=== PATIENT | male | born 1950 | race Caucasian/White ===

== ENCOUNTER → 2017-11-09 07:18 | Outpatient (CLI) | payer MEDICARE ==
[2015-06-10 10:28] VITALS: BMI 27.8
[~2017-11-09 07:18] MED LIST: BACTRIM DS TABL1 TAB PO; BAYER CHEWABLE81 MG PO; CENTRUM COMPLE1 EACH PO; COLACE100 MG PO; ELIQUIS2.5 MG PO; HYDROCODONE-APA1 TAB PO; K-DUR20 MEQ PO; LASIX40 MG PO; LIPITOR20 MG PO; LOPRESSOR25 MG PO; LUMIGAN 0.01%2.5 ML EACH EYE; NORCO 7.5/325 T1 TA1 PO; PERCOCET 10/3251 TA1 PO; PLAVIX75 MG PO; SANTYL30 GM TP; SENOKOT-S TABLE1 TAB PO; TESSALON PERLE100 MG PO
== END | disposition home or self-care (01) ==
LOC: D.CT 07:18
DX: Z86.718 Personal history of other venous thrombosis and embolism (principal)

== ENCOUNTER 2018-02-02 06:38 | Outpatient (CLI) | payer MEDICARE ==
[~2018-02-02] VITALS: Ht 172.7 cm; Wt 79.1 kg
--- NOTE | ~2018-02-02 | HEMODYNAMI ---
PATIENT:LIZA WHITFIELD MEDICAL RECORD: [id number] : 46 LOCATION:[facility] ADMISSION DATE: 02/02/18 Generatedon:02/02/201810:54 Patient name: LIZA WHITFIELD Patient #: [id number] SSN: : Date of study: 02/02/2018 Page: Of Hemodynamic Procedure Report Patient Data Patient Demographics Procedure consent was obtained First Name: LIZA Gender: Male Last Name: ROSEANN : 1950 Middle Initial: CHANDLER Age: 67 year(s) Patient #: [id number] Race: Unknown Additional ID: [id number] Contact details Address: [facility] [address] State: [place] City: [place] Zip code: [address] Past Medical History Allergies: No known allergies Admission Admission Data Admission Date: 02/02/2018 Admission Time: 6:38 Procedure Procedure Types Cath Procedure Peripheral Cath Diagnostic Procedure Abd/Extremity Extremities Procedure Description Procedure Date Procedure Date: 02/02/2018 Procedure Start Time: 9:30 Procedure Staff Name Function Kirill Garland MD Performing Physician Neo Astudillo RT Monitor Holly Pineda RN Nurse Procedure Data Cath Procedure Fluoroscopy Diagnostic fluoroscopy Total fluoroscopy dose: 384 dose: 384 mGy mGy Contrast Material Contrast Material Type Amount (ml) Isovue 300 105 Entry Location Entry Primary Successful Side Size Upsize 1 Upsize Entry Closure Successful Closure Location (Fr) (Fr) 2 (Fr) Remarks Device Remarks Femoral Left 5 Fr 7 Fr Angio-VIP artery Mid-Length 6Fr Diagnostic catheters Device Type Used For End Catheter Placement Merit ULTRA BOLUS FLUSH 5Fr 65CM catheter ([id number]) Procedure Medications Medication Administration Route Dosage Heparin Flush Bag added to field 3 bags (1000units/500ml NS) Lidocaine 1% added to field 20 Versed I.V. 1 mg Fentanyl I.V. 50 mcg Versed I.V. 1 mg Fentanyl I.V. 50 mcg Heparin Bolus 3000 Hemodynamics Rest Heart Rate: 55 (bpm) Snapshots Pre Cath Intra NCS Post Cath Vital Signs Time Heart Resp SPO2 etCO2 NIBP (mmHg) Rhythm Pain Sedation Rate (ipm) (%) (mmHg) Status Level (bpm) 9:21:46 53 11 95 0 110/65(92) NSR 0 (11) 10(A) , No pain 9:25:58 54 9 96 0 105/62(92) NSR 0 (11) 10(A) , No pain 9:30:57 60 11 98 35.1 Measuring NSR 0 (11) 10(A) , No pain 9:31:01 60 11 98 33.6 116/69(98) NSR 1 (11) 9(A) , Very mild 9:35:08 53 18 98 33.6 107/64(87) NSR 0 (11) 8(A) , No pain 9:39:18 54 13 98 34.3 104/62(71) NSR 0 (11) 8(A) , No pain 9:43:22 56 97 37.4 100/64(88) NSR 0 (11) 8(A) , No pain 9:48:21 53 13 97 36.6 Measuring NSR 0 (11) 8(A) , No pain 9:48:31 53 13 97 35.9 109/66(90) NSR 0 (11) 8(A) , No pain 9:52:41 51 13 97 33.6 121/67(100) NSR 0 (11) 8(A) , No pain 9:56:55 51 21 97 29.8 110/66(100) NSR 0 (11) 8(A) , No pain 10:00:59 52 12 97 34.3 111/67(92) NSR 0 (11) 8(A) , No pain 10:05:09 52 15 97 32.1 106/64(93) NSR 0 (11) 8(A) , No pain 10:09:19 50 13 98 31.3 106/63(86) NSR 0 (11) 8(A) , No pain 10:13:23 51 13 98 29.8 101/65(89) NSR 0 (11) 8(A) , No pain 10:18:22 51 13 97 32.8 Measuring NSR 0 (11) 8(A) , No pain 10:18:26 51 13 97 32.9 116/66(89) NSR 0 (11) 8(A) , No pain 10:22:38 50 14 98 34.4 116/67(95) NSR 0 (11) 8(A) , No pain 10:26:50 52 25 97 38.1 110/65(93) NSR 0 (11) 8(A) , No pain 10:30:59 51 18 97 29.8 111/70(100) NSR 0 (11) 8(A) , No pain 10:35:03 50 17 98 32.2 108/74(102) NSR 0 (11) 8(A) , No pain 10:39:09 52 14 98 32.1 114/77(102) NSR 0 (11) 8(A) , No pain 10:43:19 94 0 125/74(113) NSR 0 (11) 8(A) , No pain 10:47:19 0 No Cuff NSR 0 (11) 8(A) , No pain Medications Time Medication Route Dose Verified Delivered Reason Notes Effe ctiveness by by 9:10:56 Heparin Flush added 3 Kirill Roy used for Bag to bags Garland Garland procedure (1000units/500ml field MD THOMPSON NS) 9:11:08 Lidocaine 1% added 20ml Kirill Roy for local to vial Garland Garland anesthetic field MD THOMPSON 9:31:11 Versed I.V. 1 mg Kirill Eddy for Garland Edwin RN sedation 9:31:21 Fentanyl I.V. 50 Kirill Eddy for mcg Garland Edwin RN sedation 9:56:16 Versed I.V. 1 mg Kirill Eddy for Garland Edwin RN sedation 9:56:22 Fentanyl I.V. 50 Kirill Eddy for mcg Garland Edwin RN sedation 10:18:10 Heparin Bolus IA 3000 Kirill Roy UNITS Dada Garland MD, MD Procedure Log Time Note 9:00:21 Neo Astudillo RT (R) (CV) sent for patient. Start room use. 9:00:35 Time tracking: Regular hours (M-F 7:00 - 5:00) 9:00:40 Plan of Care:Hemodynamics will remain stable., Cardiac rhythm will remain stable., Comfort level will be maintained., Respiratory function will remain adequate., Patient/ family verbilizes understanding of procedure., Procedure tolerated without complication., Recovers from procedure without complications.. 9:00:46 Patient received from Outpatients to IR Alert and oriented. Tansferred to table in Supine position. 9:00:47 Correct patient and procedure confirmed by team. 9:00:49 Signed procedure consent form obtained from patient. 9:00:50 ECG and BP/O2 sat monitors applied to patient. 9:00:51 Full Disclosure recording started 9:00:52 - 9:00:55 Use device set IR Diagnostic 9:00:57 ACIST Syringe (87453) opened to sterile field. 9:00:57 ACIST Hand Control (00817) opened to sterile field. 9:00:57 ACIST Manifold (06477) opened to sterile field. 9:00:58 Bag Decanter (2002S) opened to sterile field. 9:00:58 Sterile Angiographic Pack opened to sterile field. 9:00:59 Tegaderm 4 x 4 (1626W) opened to sterile field. 9:01:06 H&P Date Dictated: 02/02/2018 H&P Addendum completed by physician on da y of procedure. (MUST COMPLETE FOR ALL OUTPATIENTS). 9:01:07 Pre-procedure instructions explained to patient. 9:01:07 Pre-op teaching completed and patient verbalized understanding. 9:01:08 Family in waiting room. 9:01:10 Patient NPO since Midnight. 9:01:17 Patient allergic to No known allergies 9:01:20 Is the patient allergic to Iodine/contrast media? No. 9:01:25 Is patient on blood thinner?Yes 9:01:28 ACC The patient was administered the following blood thiners within the last 24 hours: ACCAspirin, ACCPlavix 9:01:30 Patient diabetic? No. 9:01:32 - 9:01:33 ----Pre-sedation anethsthesia assessment.---- 9:01:37 Previous problem with sedation/anesthesia? No ? 9::40 Snore? Yes 9::42 Sleep apnea? No 9::46 Deviated septum? No 9::47 Opens mouth fully? Yes 9::48 Sticks out tongue? Yes 9::50 Airway obstruction? No ? 9::53 Dentures? Yes i 9:02:44 pt has amputatiom on right 9:02:58 Pre procedure: right dorsailis pedis pulse Other 9:03:01 Pre procedure: left dorsailis pedis pulse Doppler 9:03:05 Pre procedure: right posterior tibial pulse Other 9:03:08 Pre procedure: left posterior tibial pulse Doppler 9:03:15 Patient pain scale 0/10 no pain. 9:03:22 Right groin area was prepped with chlora-prep and draped in sterile fashion 9:03:23 Alarms reviewed by R. N. 9:03:24 Sharps counted by scrub and verified by R.N. 9:03:41 IV patent on arrival in right hand with 0.9% NaCl at KVO. 9:10:56 Heparin Flush Bag (1000units/500ml NS) 3 bags added to field was administered by Kirill Garland MD; used for procedure; 9:11:08 Lidocaine 1% 20ml vial added to field was administered by Kirill Garland MD; for local anesthetic; ::38 Baseline sample Acquired. 9:20:38 Vital chart was started 9:27:44 Physician arrived 9:27:45 --------ALL STOP TIME OUT------ 9:27:47 Right groin site verified by team. 9:27:52 Sedation plan: IV Moderate Sedation Medication:Versed, Fentanyl 9:30:02 Procedure started. 9:30:07 Local anesthetic to right femoral artery with Lidocaine 1% by Kirill Garland MD.INITIAL ACCESS ONLY 9:30:20 A 5 Fr sheath was inserted into the Left Femoral artery 9:30:25 A Merit ULTRA BOLUS FLUSH 5Fr 65CM catheter ([id number]) was advanced over the wire and used for . 9:30:27 SHEATH 5FR [place] (LDQ848) opened to sterile field. 9:30:27 PERCUTANEOUS ENTRY 19GA needle opened to sterile field. 9:30:28 DOC .035 wire (U57055) opened to sterile field. 9:31:11 Versed 1 mg I.V. was administered by Nunu Pineda RN; for sedation; 9:31:21 Fentanyl 50 mcg I.V. was administered by Nunu Pineda RN; for sedation ; 9:43:48 MAGIC TORQUE 180cm 0.035 wire ([id number]) opened to sterile field. 9:44:07 GLIDE WIRE ANGLE 180cm (FR0914) opened to sterile field. 9:49:37 WILDER 260 wire (I92049) opened to sterile field. 9:50:49 SHEATH 7FR Destination (RSR04) opened to sterile field. 9:51:01 Sheath upsized to a 7 Fr Mid-Length. 9:56:16 Versed 1 mg I.V. was administered by Nunu Pineda RN; for sedation; 9:56:22 Fentanyl 50 mcg I.V. was administered by Nunu Pineda RN; for sedation ; 9:58:54 GLIDE CATHETER 4FR Straight 65cm (CG412) opened to sterile field. 9:58:54 INFLATOR BasixTOUCH (GV7376) opened to sterile field. 10:08:14 GLIDE CATHETER 5FR STRAIGHT 100cm (CG506) opened to sterile field. 10:09:19 Inflate balloon Inflation number: 1 A IN.PACT Admiral 6 x 40 x 130 DCB Balloon ([id number]) was prepped and advanced across the Proximal Superficial Femoral, Left, then inflated to 8 DEBBIE for 2:56 (min:sec). 10:14:13 VIABAHN 6 X 10 X 120 stent ([id number]) was deployed across Distal Superficial Femoral, Left . 10:16:17 Inflate balloon Inflation number: 1 A [place] 5 x 4 x 135 Balloon ([id number]) was prepped and advanced across the Distal Superficial Femoral, Left, then inflated to 10 DEBBIE for 0:05 (min:sec). 10:18:10 Heparin Bolus 3000 UNITS IA was administered by Kirill Garland MD; ; 10:23:09 ANGIOSEAL-VIP PLUS 6 FR opened to sterile field. 10:24:30 Sheath removed intact; hemostasis achieved with Angio-VIP 6Fr to the Left Femoral artery. 10:25:06 Procedure ended.(Physican Out) 10:27:17 Flurop Dose total: 384 10::17 Fluoroscopy dose: 384 mGy 10:27:18 Sharps counted by scrub and verified by R.N. 10:27:24 Post-op/insertion site Right Femoral artery dressed using a 4 x 4 and Tegaderm. 10:27:27 Post right femoral artery:stable 10:27:28 Post Procedure Pulses reassessed and unchanged 10:37:13 Contrast amount:Isovue 300 105ml. 10:47:00 Vital chart was stopped 10:47:03 Vital chart was started 10:47:08 Vital chart was stopped 10:52:48 Post procedure instruction explained to patient.Patient verbalizes understanding. 10:53:01 Procedure and supply charges have been captured, reviewed, submitted an d are correct. 10:53:22 Report given to Outpatients. 10:53:29 Patient transfered to Outpatients with Stretcher. Intervention Summary Intervention Notes Time ActionType Lesion and Equipment Used Action# Pressure Duration Attributes 10:09:19 Inflate Proximal IN.PACT Admiral 1 8 02:56 balloon Superficial 6 x 40 x 130 Femoral, DCB Balloon Left ([id number]) 10:14:13 Deploy self Distal VIABAHN 6 X 10 1 expanding Superficial X 120 stent stent Femoral, ([id number]) Left 10:16:17 Inflate Distal [place] 5 x 4 1 10 00:05 balloon Superficial x 135 Balloon Femoral, ([id number]) Left Device Usage Item Name Manufacture Quantity Catalog Number Hospital Part Current M inimal Lot# / Charge Number Stock Stock Serial# Code ACIST Syringe Acist 1 98149 459515 104633 171130 2 0 (22121) Medical Systems Exeros ACIST Hand Acist 1 70593 471177 636109 271158 5 Control (61849) Medical Systems Inc ACIST Manifold Acist 1 70913 333042 106671 798398 5 (39957) Medical Systems Inc Bag Decanter Microtek 1 2001S 637598 22058 352359 5 () Medical Inc. Sterile Cardinal 1 [id number] 309362 082924 5 Angiographic Health Pack Tegaderm 4 x 4 3M 1 1626W 043375 217338 490682 5 (1626W) Merit ULTRA Merit 1 [id number] 569456 939956 5 BOLUS FLUSH 5Fr Medical 65CM catheter ([id number]) SHEATH 5FR Terumo 1 KPA110 211439 122903 762017 5 [place] (JFC808) PERCUTANEOUS Cook Medical 1 J56229 576292 216894 5 2346827 ENTRY 19GA needle DOC .035 wire Cook Medical 1 C54483 922163 861398 5 (T29925) MAGIC TORQUE [place] 1 [id number] 285958 129465 624852 1 180cm 0.035 Scientific wire ([id number]) GLIDE WIRE Terumo 1 IM2412 480717 168750 420438 5 ANGLE 180cm (GE7564) WILDER 260 wire Cook Medical 1 I82119 038330 71978 460078 5 (K28012) SHEATH 7FR Terumo 1 RSR04 183049 970475 038439 5 Destination (RSR04) GLIDE CATHETER Terumo 1 CG412 666127 659360 5 4FR Straight 65cm (CG412) INFLATOR Merit 1 OF4731 481188 584253 631120 5 [facility][id number] GLIDE CATHETER Terumo 1 CG506 522542 97585 633067 4 5FR STRAIGHT 100cm (CG506) IN.PACT Admiral Medtronic 1 [id number] 576965 662645 561742 5 [id number] 6 x 40 x 130 DCB Balloon ([id number]) VIABAHN 6 X 10 W.L. Dupont 1 [id number] 933897 388806 282100 5 [id number] X 120 stent ([id number]) Evercross 5 x 4 Medtronic 1 [id number] 902367 406263 580733 5 [id number] x 135 Balloon ([id number]) ANGIOSEAL-VIP [facility] [place] 1 856420 081407 257360 5 [id number] PLUS 6 FR Signature Audit [place] Stage Time Signature Unsigned Intra-Procedure 02/02/2018 Neo 10:54:11 AM Wilda RT (R) (CV) Signatures Monitor : Neo Signature : Wilda RT Date : Time : [id number] [place] [address]
[2018-02-02 07:03] LABS: BASOPHILS 0.1 % (0-2); EOSINOPHILS 3.4 % (0-7); HEMATOCRIT 45.9 % (42.0-54.0); IMMATURE GRANULOCYTES 0.1 % (0-5); LYMPHOCYTES 36.4 % (15-50); MCH 31.9 pg (26.0-34.0); MCHC 34.9 g/dL (31.0-37.0); MCV 91.4 fL (80.0-100.0); MEAN PLATELET VOLUME 10.1 fL (7.4-10.4); RBC 5.02 10x6/uL (4.20-6.10); RDW 13.9 % (11.5-14.5); WBC 7.4 10x3/uL (4.8-10.8)
[2018-02-02 07:04] LABS: PLATELET COUNT 177 10x3/uL (130-400)
[2018-02-02 07:12] LABS: APTT 27.8 SECONDS (22.8-39.4); CALC OSMOLALITY 285 mosm/kg (275-300); CALCIUM 8.8 mg/dL (8.5-10.1); CARBON DIOXIDE 27.2 mmol/L (21.0-32.0); CHLORIDE - SERUM 107 mmol/L (98-107); CREATININE - SERUM 0.9 mg/dL (0.6-1.3); GLUCOSE 99 mg/dL (74-106); INR 0.99 (0.85-1.17); PROTIME 12.6 SECONDS (11.6-15.0); SODIUM 144 mmol/L (136-145); UREA NITROGEN 10 mg/dL (7-18); eGFR NON AFRICAN AMERICAN 89 mL/min (90-120)
[2018-02-02 08:33] VITALS: BP 101/56; Ht 172.7 cm; Wt 79.1 kg
--- NOTE | 2018-02-02 13:26 | NUR ---
PATIENT RECIEVED FROM SPECIALS POST ANTERIOGRAM. DRESSING CDI SUPINE POSITION FOR 4 HOURS. VS PER FREQUENT VITALS SHEET
== END 2018-02-02 15:12 | disposition home or self-care (01) ==
LOC: D.SP 06:38 → D.RAD 09:00 → D.SP 09:00
PROVIDERS: Specialist
DX: I70.212 Atherosclerosis of native arteries of extremities with intermittent claudication, left leg (principal); I72.4 Aneurysm of artery of lower extremity; J44.9 Chronic obstructive pulmonary disease, unspecified; I10 Essential (primary) hypertension; E78.5 Hyperlipidemia, unspecified; Z01.812 Encounter for preprocedural laboratory examination

== ENCOUNTER → 2018-10-05 13:05 | Outpatient (CLI) | payer MEDICARE ==
[2018-02-02 08:33] VITALS: BMI 26.5
== END | disposition home or self-care (01) ==
LOC: D.CT 13:05
PROVIDERS: ATTEND Specialist
DX: I73.9 Peripheral vascular disease, unspecified (principal)

== ENCOUNTER → 2019-01-31 09:06 | Outpatient (CLI) | payer MEDICARE ==
[2018-02-02 08:33] VITALS: BMI 26.5
--- NOTE | 2019-02-07 11:25 | EC ---
PATIENT:LIZA WHITFIELD DATE OF SERVICE: 01/31/19 SEX: M MEDICAL RECORD: [id number] DATE OF : 46 LOCATION:[facility] AGE OF PATIENT: 68 ADMISSION DATE: 01/31/19 REFERRING PHYSICIAN: INTERPRETING PHYSICIAN: BLAYNE ROACH MD ECHOCARDIOGRAM REPORT ECHO CHARGES 5 ECHO LIMITED Date: 01/31/19 CLINICAL DIAGNOSIS: HTN/TRICUSPID REGURG ECHOCARDIOGRAPHIC MEASUREMENTS (adult normal given) AC root (d.<3.7cm) 5.0 cm LV Septum d (<1.2 cm> 1.4 cm Valve Excursion 2.5 cm LV Septum (systole) 1.9 cm Left Atria (s.<4.0cm> 4.6 cm LVPW d(<1.2cm) 1.7 cm RV (d.<2.3cm) 3.5 cm LVPW (sytole) 1.9 cm LV diastole(<5.6CM) 4.9 cm MV E-F(>70mm/sec) cm LV systole 3.1 cm LVOT Diameter 1.9 cm MV exc.(>10mm) cm Est.ejection fraction (50-75%) % DOPPLER: LVIT cm/sec A cm/sec E cm/sec LA cm/sec RVSP 27 mmHg LVOT cm/sec AOP1/2T m/s Asc. Ao cm/sec RVOT cm/sec RA cm/sec PA cm/sec AV Gradient Peak mmHg AV Mean mmHg AV Area cm MV Gradient Peak mmHg MV Mean mmHg MV Area cm COMMENTS: Pilot Plant Operator: Jordin STRATTON Road Worker: 3 Dr. Cooper TAPE# PACS Pericardial Effusion N DATE OF SERVICE: Adequate 2D, color flow, spectral Doppler, and M-mode. Mild LVH. LV internal dimension is normal. Wall motion is home. EF is greater than or equal to 55%. Aortic valve is tricuspid. No evidence of stenosis by Doppler interrogation. Left atrium is dilated at 4.6 cm. Mitral valve shows no prolapse. Mild MR. Right-sided chambers are grossly normal. Trace TR. TRANSINT:[id number] Voice Confirmation ID: [id number] DOCUMENT ID: [id number] ECHOCARDIOGRAM REPORT [id number] ROSEANNLIZA BLAYNE ROACH MD at 1127 CC: [id number] DICTATION DATE: 01/31/19 1309 HEAVY EQUIPMENT FIELD MECHANIC: 01/31/19 1529 DEP CLI [facility]/31/19 [facility] [address] [place] [address]
== END | disposition home or self-care (01) ==
LOC: D.HCCECHO 09:06
PROVIDERS: ATTEND Internal Medicine Interventional Cardiology
DX: I10 Essential (primary) hypertension (principal)